=== PATIENT | male | born 1985 ===

== ENCOUNTER 2017-03-29 08:39 | Emergency (ER) | payer MEDICAID, OTHER ==
[2017-03-29 08:46] VITALS: O2SAT 98
[2017-03-29] MEDS ORDERED: Alum-Mag Hydrox-Simethicone Susp (30 mL) PO STA (09:09)
[2017-03-29] MEDS ORDERED: Atrop/Hyos/Scop/PhenoB Elixir PO STA (09:09)
--- NOTE | 2017-03-29 09:22 | ED PDOC ---
HPI: Abdomen History Per: Patient History/Exam Limitations: no limitations Onset/Duration Of Symptoms: Days Outside of [place] travel?: No Current Symptoms Are (Timing): Still Present Severity: Moderate Pain Scale Rating Of: 6 Location Of Pain/Discomfort: Epigastric Quality Of Discomfort: Stabbing Associated Symptoms: Nausea, Vomiting. denies: Fever, Chills, Diarrhea, Loss Of Appetite, Chest Pain, Constipation, Urinary Symptoms Alleviating Factors: Other (pressing epigastric area) Last Bowel Movement: Yesterday <Wally Elizondo - Last Filed: 03/29/17 11:39> <Leslye Garcia - Last Filed: 03/29/17 11:44> Time Seen by Provider: 03/29/17 08:43 Chief Complaint (Nursing): Abdominal Pain Additional Complaint(s): CC: abdominal pain HPI: 31 y/o man w/ PMH of GERD and chronic back pain w/ sciatica presents to ED w/ abdominal pain. The patient reports that the pain started a few days ago , at the epigastric region, constant, stabbing in nature, localized, currently 6 /10 but was 10/10 earlier this AM, no relief from luis e-seltzer and PPIs, and relieved somewhat by pressing on the area. The patient reports associated x1 episode of non-bilious vomit w/ streaks of blood. The patient is a former smoker (quit 7 years ago), drinks socially, and denies drug use. The patient reports that brother was treated for H.pylori in the past and his father has a hiatal hernia. The patient denies headaches, dizziness, chest pain, SOB, dysuria, diarrhea, constipation, and fevers. PMD: none PMH: GERD, chronic back pain w/ sciatica PSH: hydrocele 1999, appendectomy 02/2004 FAM: father has hiatal hernia, brother treated for H.pylori SOC: former smoker (quit 7 yrs ago), consumes alcohol socially, denies drug use ROS: negative for 12 points assessed unless otherwise reported in HPI (Wally Elizondo) Supervising Attending Note - Supervising Attending Note The Documented history was done by the: Physician Pantograph Machine Set Up Operator The documented physical exam was done by the: Physician Pantograph Machine Set Up Operator The documented procedures were done by the: Physician Pantograph Machine Set Up Operator - Attestation: I have personally seen and examined this patient.: Yes I have fully participated in the care of the patient.: Yes I have reviewed all pertinent clinical information: Yes <Leslye Garcia - Last Filed: 03/29/17 11:44> Past Medical History - Medical History PMH: Denies: Chronic Kidney Disease - Surgical History Surgical History: Appendectomy - Family History Family History: States: Other Other Family History: father has hiatal hernia, brother treated for H.pylori - Social History Current smoker - smoking cessation education provided: No Ex-Smoker (has not smoked in the last 12 months): Yes (quit 7 years ago) Alcohol: Social Drugs: Denies <Wally Elizondo - Last Filed: 03/29/17 11:39> <Leslye Garcia - Last Filed: 03/29/17 11:44> Vital Signs: Last Vital Signs Temp Pulse Resp BP Pulse Ox 98 03/29/17 11:40 - Home Medications Home Medications: Ambulatory Orders Medication Instructions Recorded Famotidine [Pepcid] 20 mg PO BID #10 tab 03/29/17 - Allergies Allergies/Adverse Reactions: Allergies Allergy/AdvReac Type Severity Reaction Status Date / Time No Known Allergies Allergy Verified 03/29/17 08:42 Review of Systems ROS Statement: Except As Marked, All Systems Reviewed And Found Negative Constitutional: Negative for: Fever, Sweats, Weight loss Cardiovascular: Negative for: Chest Pain, Palpitations, Edema, Light Headedness Respiratory: Negative for: Cough, Shortness of Breath, SOB with Exertion, Pleuritic Pain Gastrointestinal: Positive for: Nausea, Vomiting, Abdominal Pain. Negative for : Diarrhea, Constipation, Melena, Hematochezia, Hematemesis Genitourinary Male: Negative for: Dysuria Musculoskeletal: Negative for: Shoulder Pain Skin: Negative for: Rash Neurological: Negative for: Confusion, Altered Mental Status, Headache, Dizziness <Wally Elizondo - Last Filed: 03/29/17 11:39> Physical Exam - Physical Exam Appears: Positive for: No Acute Distress Head Exam: Positive for: ATRAUMATIC, NORMOCEPHALIC Skin: Positive for: Normal Color, Warm, Dry Eye Exam: Positive for: Normal appearance Neck: Positive for: Painless ROM, Supple Cardiovascular/Chest: Positive for: Regular Rate, Rhythm, Chest Non Tender. Negative for: Tachycardia Respiratory: Positive for: Normal Breath Sounds. Negative for: Accessory Muscle Use, Crackles, Rales, Rhonchi, Wheezing, Respiratory Distress Pulses-Carotid (L): 2+ Pulses-Carotid (R): 2+ Pulses-Radial (L): 2+ Pulses-Radial (R): 2+ Gastrointestinal/Abdominal: Positive for: Bowel Sounds, Soft, Tenderness ( epigastric tenderness), Other (negative vitale's sign). Negative for: Mass, Distended, Guarding Back: Negative for: L CVA Tenderness, R CVA Tenderness Neurologic/Psych: Positive for: Alert, Oriented <Wally Elizondo - Last Filed: 03/29/17 11:39> - Laboratory Results Result Diagrams: 03/29/17 09:30 03/29/17 09:30 - ECG O2 Sat by Pulse Oximetry: 98 <Wally Elizondo - Last Filed: 03/29/17 11:39> - Laboratory Results Result Diagrams: 03/29/17 09:30 03/29/17 09:30 <Leslye Garcia - Last Filed: 03/29/17 11:44> Medical Decision Making <Wally Elizondo - Last Filed: 03/29/17 11:39> <Leslye Garcia - Last Filed: 03/29/17 11:44> Medical Decision Makin31 y/o man w/ PMH of GERD and chronic back pain w/ sciatica presents to ED w/ abdominal pain CBC w/ diff CMP lipase GI cocktail (viscous lidocaine, maalox, ) given re-evaluate (Wally Elizondo) Disposition - Patient ED Disposition Is Patient to be Admitted: No Discussed With : Leslye Garcia Counseled Patient/Family Regarding: Studies Performed, Diagnosis, Need For Followup - Disposition Disposition: Routine/Home Disposition Time: 11:39 <Wally Elizondo - Last Filed: 03/29/17 11:39> - POA Present On Arrival: None <Leslye Garcia - Last Filed: 03/29/17 11:44> - Clinical Impression Clinical Impression: GERD (gastroesophageal reflux disease) - Disposition Referrals: [facility] [Outside] Condition: IMPROVED Prescriptions: Famotidine [Pepcid] 20 mg PO BID #10 tab Instructions: Diet for Ulcers and Gastritis (ED), Gastroesophageal Reflux Disease (ED) Print Language: SWEDISH
[2017-03-29 09:58] LABS: BASO % 0.2 % (0.0-2.0); EOS # 0.4 K/uL (0.0-0.7); EOS % 3.3 % (0.0-4.0); HEMOGLOBIN 14.5 g/dL (12.0-18.0); LYMPH # 1.3 K/uL (1.0-4.3); LYMPH % 11.2 % (20.0-40.0); MEAN CELL VOLUME 83.7 fl (80.0-94.0); MEAN CORPUSCULAR HEMOGLOBIN 28.7 pg (27.0-31.0); MEAN CORPUSCULAR HGB CONC 34.2 g/dL (33.0-37.0); MEAN PLATELET VOLUME 9.1 fl (7.2-11.7); MONO % 8.1 % (0.0-10.0); NEUT # 9.2 K/uL (1.8-7.0); NEUT % 77.2 % (50.0-75.0); RBC 5.06 Mil/uL (4.40-5.90); RED CELL DISTRIBUTION WIDTH 13.9 % (11.5-14.5); WHITE BLOOD COUNT 11.9 K/uL (4.8-10.8)
[2017-03-29 10:08] LABS: ALB/GLOB RATIO 1.6 (1.0-2.1); ALBUMIN 4.3 g/dL (3.5-5.0); ALT/SGPT 38 U/L (21-72); AST/SGOT 20 U/L (17-59); BLOOD UREA NITROGEN 4 mg/dl (9-20); GFR AFRICAN-AMERICAN > 60; GFR NON-AFRICAN AMERICAN > 60; LIPASE 58 U/L (23-300)
[2017-03-29] MEDS ORDERED: Iohexol 240 (50 ml) ONE (15:19)
== END 2017-03-29 11:59 | disposition home or self-care (01) ==
LOC: H.ER 08:39
DX: K21.9 Gastro-esophageal reflux disease without esophagitis (principal); G89.29 Other chronic pain